=== PATIENT | female | born 1990 | race Caucasian/White ===

== ENCOUNTER → 2017-11-22 15:19 | Outpatient (CLI) | payer MEDICAID, SELFPAY ==
--- NOTE | 2017-11-22 15:27 | NVE_ITS ---
Venous Exam Indications: 729.5 Pain in limb. IMPRESSIONS No evidence of deep or superficial vein thrombosis involving the left lower extremity History: Risk factors: Current tobacco use. Medications: Aspirin, 81 mg daily. Left lower extremity venous duplex evaluation. Doppler flow study including spectral analysis, color and huertas scale imaging. Location: Vascular laboratory. Patient status: Outpatient. Tables: Venous flow and imaging: + +-------+ + Location Overall Flow properties + +-------+ + Left common femoral Patent Normal phasicity; spontaneous; normal augmentation; compressible + +-------+ + Left saphenofemoral junction Patent Compressible + +-------+ + Left profunda femoral Patent Compressible + +-------+ + Left femoral Patent Normal phasicity; spontaneous; normal augmentation; compressible + +-------+ + Left greater saphenous Patent Normal phasicity; spontaneous; normal augmentation; compressible + +-------+ + Left popliteal Patent Normal phasicity; spontaneous; normal augmentation; compressible + +-------+ + Left posterior tibial Patent Compressible + +-------+ + Left peroneal Patent Compressible + +-------+ + Left gastrocnemius Patent Compressible + +-------+ + Left soleal Patent Compressible + +-------+ + (Report amended ) Electronically signed by: Sammy Abrams [id number]
== END ==
PROVIDERS: PCP Family Medicine; Visit Provider Family Medicine
DX: Z86.718 Personal history of other venous thrombosis and embolism (principal)
CPT/HCPCS: 93971

== ENCOUNTER → 2017-12-24 11:16 | Outpatient (CLI) | payer MEDICAID, SELFPAY ==
--- NOTE | 2017-12-24 11:24 | XR_ITS ---
EXAM: XR lumbar spine min 4V HISTORY: ITS.REASON: LEG PAIN, LEFT ORDERING PHYSICIAN: Tomás Parisi MD PATIENT AGE: 26 years FINDINGS: Normal alignment. No fracture or dislocation. No lytic or blastic change. No significant degenerative change. The disc spaces are preserved. IMPRESSION: Negative lumbar spine
== END ==
PROVIDERS: PCP Family Medicine; Visit Provider Family Medicine
DX: M79.605 Pain in left leg (principal)
CPT/HCPCS: 72110

== ENCOUNTER → 2018-09-09 13:03 | Outpatient (CLI) | payer MEDICAID, SELFPAY ==
--- NOTE | 2018-09-09 13:06 | MR_ITS ---
MR lumbar spine wo con, MR 3-d myelogram/MRCP HISTORY: PT states low back pain X 8 weeks. LT leg pain, numbness and tingling. No known injury. ITS.REASON: SCIATICA OF LEFT SIDE ORDERING PHYSICIAN: Melissa Davis MD PATIENT AGE: 27 years Comparison: X-RAY 12/24/17 TECHNIQUE: Standard multiplanar multiecho sequences are performed without contrast. 3-D MIP and myelographic images are also rendered and reviewed FINDINGS: There is normal alignment. The spinal cord ends at the L1-L2 level. L2-L3: Unremarkable. L3-4: Unremarkable. L4-5: Mild facet and ligamentum flavum hypertrophy. L5-S1: There is bulging disc with a small broad-based central/left paracentral disc protrusion along with mild facet and ligamentum flavum hypertrophy. There is left lateral recess narrowing with mild impingement upon the left S1 nerve root and there is mild narrowing of the left L5-S1 foramen IMPRESSION: 1. There is bulging disc and L5-S1 with a small broad-based central/left paracentral disc protrusion along with mild facet and ligamentum flavum hypertrophy. There is left lateral recess narrowing with mild impingement upon the left S1 nerve root and there is mild narrowing of the left L5-S1 foramen 2. Otherwise negative MRI of the lumbar spine
== END ==
PROVIDERS: PCP Emergency Medicine; Visit Provider Emergency Medicine
DX: M54.32 Sciatica, left side (principal)
CPT/HCPCS: 72148; 76376

== ENCOUNTER 2018-10-14 17:30 | Outpatient (RCR) | payer MEDICAID, SELFPAY ==
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
== END 2018-10-14 17:35 | disposition home or self-care (01) ==
LOC: PT 17:30
PROVIDERS: Visit Provider Emergency Medicine
DX: M54.32 Sciatica, left side (principal)
CPT/HCPCS: 97010; 97012; 97014; 97033; 97110; 97140; 97163; G0283